=== PATIENT | female | born 1965 | race Caucasian/White ===

== ENCOUNTER 2024-09-13 06:21 | Day surgery (SDC) | payer BC ==
[2024-09-11 13:53] VITALS: BMI 36.9
[2024-09-13] MEDS ORDERED: Midazolam HCl 2 mg/2 ml Vial ONE ×2 (08:45→09:01)
[2024-09-13] MEDS ORDERED: PROPOFOL 40 ML ONE (08:45)
[2024-09-13] MEDS ORDERED: PROPOFOL 60 ML ONE (09:16)
== END 2024-09-13 10:10 | disposition home or self-care (01) ==
LOC: CSHSDC 06:21
PROVIDERS: ATTEND Surgery
PROC: 0DBL8ZZ Excision of Transverse Colon, Via Natural or Artificial Opening Endoscopic (ICD-10-PCS; principal; 2024-09-13)
PROC: 0DBH8ZZ Excision of Cecum, Via Natural or Artificial Opening Endoscopic (ICD-10-PCS; principal; 2024-09-13)
DX: Z12.11 Encounter for screening for malignant neoplasm of colon (principal); D12.0 Benign neoplasm of cecum; D12.3 Benign neoplasm of transverse colon; K57.30 Diverticulosis of large intestine without perforation or abscess without bleeding; E66.01 Morbid (severe) obesity due to excess calories; F41.9 Anxiety disorder, unspecified; E78.00 Pure hypercholesterolemia, unspecified; K21.9 Gastro-esophageal reflux disease without esophagitis; E11.9 Type 2 diabetes mellitus without complications; I10 Essential (primary) hypertension; Z88.8 Allergy status to other drugs, medicaments and biological substances; Z79.84 Long term (current) use of oral hypoglycemic drugs; Z79.85 Long-term (current) use of injectable non-insulin antidiabetic drugs; Z87.891 Personal history of nicotine dependence; Z68.37 Body mass index [BMI] 37.0-37.9, adult; Z79.899 Other long term (current) drug therapy
CPT/HCPCS: 88305; J2250; J2704

== ENCOUNTER 2024-09-13 13:30 | Outpatient (CLI) | payer BC | END 2024-09-13 13:31 | disposition home or self-care (01) | LOC: CSHMRI 13:30 | PROVIDERS: ATTEND Orthopaedic Surgery | DX: M75.111 Incomplete rotator cuff tear or rupture of right shoulder, not specified as traumatic (principal); M67.813 Other specified disorders of tendon, right shoulder; M19.011 Primary osteoarthritis, right shoulder; S43.431A Superior glenoid labrum lesion of right shoulder, initial encounter ==